=== PATIENT | female | born 2000 | race American Indian/Alaskan Native ===

== ENCOUNTER 2020-12-12 02:11 | Emergency (ER) | payer MEDICAID ==
[2020-12-12] MEDS ORDERED: Tetracaine HCl/PF 0.5% 4 ML Bottle ONE (02:34)
[2020-12-12] MEDS ORDERED: Tetracaine HCl/PF 0.5% 4 ML Bottle EYEBOTH ONE (02:35)
--- NOTE | 2020-12-12 02:56 | EDM.PDOC ---
ED HPI GENERAL MEDICAL PROBLEM - General Chief Complaint: ENT Problem Stated Complaint: EYE PAIN Time Seen by Provider: 12/12/20 02:12 Source of Information: Reports: Patient History Limitations: Reports: No Limitations - History of Present Illness INITIAL COMMENTS - FREE TEXT/NARRATIVE: Patient is a 20-year-old female presents today for eye itchiness and burning. Patient states that she was wearing her contacts for 3 days without taking them out and when she did not today her eyes were irritated. She denies any discharge or drainage from the eye. This is whenever she opens her eyes to light irritates it. When she does open her eyes denies any vision changes she has no neurologic complaints. - Related Data Allergies Allergy/AdvReac Type Severity Reaction Status Date / Time No Known Allergies Allergy Verified 12/12/20 02:25 Home Meds: Home Meds . [No Known Home Meds] 12/12/20 [History] Past Medical History - Past Health History Medical/Surgical History: Denies Medical/Surgical History Social & Family History - Tobacco Use Tobacco Use Status *Q: Never Tobacco User - Recreational Drug Use Recreational Drug Use: No ED ROS GENERAL - Review of Systems Review Of Systems: See Below Constitutional: Reports: No Symptoms HEENT: Reports: Eye Pain Respiratory: Reports: No Symptoms Cardiovascular: Reports: No Symptoms Endocrine: Reports: No Symptoms GI/Abdominal: Reports: No Symptoms : Reports: No Symptoms Musculoskeletal: Reports: No Symptoms Skin: Reports: No Symptoms Neurological: Reports: No Symptoms Psychiatric: Reports: No Symptoms Hematologic/Lymphatic: Reports: No Symptoms Immunologic: Reports: No Symptoms ED EXAM GENERAL W FULL EYE - Physical Exam Exam: See Below Exam Limited By: No Limitations General Appearance: Alert, WD/WN, No Apparent Distress Eye Exam: Bilateral Eye: EOMI, PERRL Eyelids: Bilateral: Normal Appearance Conjunctiva & Sclera: Bilateral: Other (Conjunctivitis) Cornea Exam: Bilateral: Normal Appearance Extraocular Movements: Bilateral: Intact Ears: Normal External Exam Nose: Normal Inspection Head: Atraumatic Neck: Normal Inspection Respiratory/Chest: No Respiratory Distress Extremities: Normal Inspection Neurological: Alert, Oriented, Normal Cognition, Normal Gait Course - Vital Signs Last Recorded V/S: Last Vital Signs Temp 98.4 F 12/12/20 02:27 Pulse 78 12/12/20 02:27 Resp 16 12/12/20 02:27 BP 123/72 12/12/20 02:27 Pulse Ox 97 12/12/20 02:27 - Orders/Labs/Meds Meds: Medications Discontinued Medications Generic Name Dose Route Start Last Admin Trade Name Clau PRN Reason Stop Dose Admin Tetracaine HCl 2 ml 12/12/20 02:35 12/12/20 02:44 Tetracaine Hcl/Pf 0.5% 4 Ml Bottle EYEBOTH 12/12/20 02:36 2 drop ASDIRECTED ONE Administration Tetracaine HCl Confirm 12/12/20 02:34 12/12/20 02:45 Tetracaine Hcl/Pf 0.5% 4 Ml Bottle Administered 12/12/20 02:35 Not Given Dose 4 ml .ROUTE .STK-MED ONE - Re-Assessments/Exams Free Text/Narrative Re-Assessment/Exam: 12/12/20 03:26 We flushed the patient's eyes with 2050 cc bags in both eyes. Some minimal relief. Patient again has a possible keratitis and we will have her follow-up with ophthalmology in the morning. Departure - Departure Time of Disposition: 03:26 Disposition: Home, Self-Care 01 Condition: Good Clinical Impression: Keratitis - Discharge Information *PRESCRIPTION DRUG MONITORING PROGRAM REVIEWED*: Not Applicable *COPY OF PRESCRIPTION DRUG MONITORING REPORT IN PATIENT [place]: Not Applicable Instructions: Ultraviolet Keratitis, [id number] Referrals: PCP,None [Primary Care Provider] - Forms: ED Department Discharge Additional Instructions: You were seen today for burning and pain to both eyes after wearing contacts. We flushed her eyes with saline to try to relieve some itchiness and pain. We also examine your eyes under Yang lamp did not see any abrasions to be causing this. This may be a keratitis. Below is known for ophthalmology which is eye doctor that you can call tomorrow and try to be seen. Please send urine ER and see if they can get your appointment soon as possible for follow-up. If you have any other concerning signs or symptoms please feel free to return to the ED. The following information is given to patients seen in the emergency department who are being discharged to home. This information is to outline your options for follow-up care. We provide all patients seen in our emergency department with a follow-up referral. The need for follow-up, as well as the timing and circumstances, are variable depending upon the specifics of your emergency department visit. If you don't have a primary care physician on staff, we will provide you with a referral. We always advise you to contact your personal physician following an emergency department visit to inform them of the circumstance of the visit and for follow-up with them and/or the need for any referrals to a consulting specialist. The emergency department will also refer you to a specialist when appropriate. This referral assures that you have the opportunity for follow-up care with a specialist. All of these measure are taken in an effort to provide you with optimal care, which includes your follow-up. Under all circumstances we always encourage you to contact your private physician who remains a resource for coordinating your care. When calling for follow-up care, please make the office aware that this follow-up is from your recent emergency room visit. If for any reason you are refused follow-up, please contact the [facility] Emergency Department at and asked to speak to the emergency department charge nurse. Please follow up with your primary care physician. If you do not have a primary care physician, see below: Ophthalmology [phone] [place] [id number] [address] Sepsis Event Note (ED) - Evaluation Sepsis Screening Result: No Definite Risk - Focused Exam Vital Signs: Vital Signs Temp Pulse Resp BP Pulse Ox 12/12/20 02:27 98.4 F 78 16 123/72 97 - Assessment/Plan Plan: Patient is a 20-year-old female presents today for itchiness and burning. On Yang of exam patient has no corneal abrasions or ulcers. Patient likely has a keratitis. Will flush the eyes provide Motrin and have patient follow-up with ophthalmology.
== END 2020-12-12 03:37 | disposition home or self-care (01) ==
LOC: MW.ED 02:11
DX: H16.9 Unspecified keratitis (principal)
CPT/HCPCS: 99283